=== PATIENT | female | born 1970 | race Caucasian/White ===

== ENCOUNTER 2016-10-22 09:18 | Outpatient (CLI) | payer OTHER ==
--- NOTE | 2016-10-29 09:55 | DIAGNOSTIC IMAGING REPORT ---
PROCEDURE: MG BILATERAL SCREENING W/CAD INDICATION: SCREENING TECHNIQUE: Bilateral CC and MLO digital views. COMPARISON: Mammograms of 09/25/2015 and 09/19/2015. FINDINGS: Computer-aided detection applied. Moderately dense. No change. IMPRESSION: 1. Negative mammogram RESULT CODE: 1- Negative. A. A negative report should not delay biopsy if a dominant or clinically suspicious mass is present. 10-15% of cancers are not identified by x-ray. B. A negative report may reinforce clinical impression. C. Adenosis and dense breasts may obscure an underlying neoplasm. D. False positive reports average 6-10%. E.. A yearly screening mammogram is recommended. A reminder letter will be scheduled.
== END 2016-10-22 23:00 | disposition home or self-care (01) ==
LOC: MAM SRH 09:18

== ENCOUNTER 2016-12-04 09:53 | Outpatient (CLI) | payer OTHER ==
--- NOTE | 2016-12-04 11:24 | DIAGNOSTIC IMAGING REPORT ---
PROCEDURE: US VENOUS - RIGHT EXT INDICATION: RLE CALF PAIN TECHNIQUE: Duplex sonography of the deep venous system in the right lower extremity was performed. Compression and augmentation techniques were used. COMPARISON: None. FINDINGS: Each interrogated segment of deep vein from the common femoral vein into the calf veins demonstrates normal compressibility, augmentation and/or color Doppler flow without filling defect. No evidence of significant soft-tissue edema, soft-tissue mass or cyst. No superficial thrombophlebitis in the right calf region. IMPRESSION: 1. No deep venous thrombosis in the right lower extremity.
== END 2016-12-04 23:00 ==
LOC: US SRH 09:53
DX: M79.661 Pain in right lower leg (principal)